=== PATIENT | male | born 1945 | race Caucasian/White ===

== ENCOUNTER 2017-05-22 12:24 | Emergency (ER) | payer OTHER, MEDICARE ==
[~2017-05-22] VITALS: Ht 193 cm; Wt 67.3 kg
[~2017-05-22 12:24] MED LIST: HYDR12.5 PO; MAGN400C PO; METO-395 PO
[2017-05-22 13:04] LABS: BASOPHILS % (AUTO) 0.3 % (0-1); EOSINOPHILS # (AUTO) 0.2 X10'3 (0-0.9); EOSINOPHILS % (AUTO) 1.7 % (0-6); HEMATOCRIT 34.4 % (42.0-52.0); HEMOGLOBIN 11.5 g/dl (14.0-17.9); LYMPHOCYTES % (AUTO) 10.6 % (21-51); MEAN CORPUSCULAR HEMOGLOBIN 35.5 PG (27.0-31.0); MEAN CORPUSCULAR HGB CONC 33.4 % (33.0-36.5); MEAN CORPUSCULAR VOLUME 106.4 FL (78-98); MEAN PLATELET VOLUME 7.3 FL (7.4-10.4); MONOCYTES # (AUTO) 0.5 X10'3 (0-0.9); MONOCYTES % (AUTO) 5.1 % (2-12); NEUTROPHILS # (AUTO) 7.7 X10'3 (1.8-7.7); NEUTROPHILS % (AUTO) 82.3 % (42-75); PLATELET COUNT 284 X10'3 (140-440); RED BLOOD COUNT 3.24 X10'6 (4.70-6.10); RED CELL DISTRIBUTION WIDTH 17.2 % (11.5-14.5); WHITE BLOOD COUNT 9.4 X10'3 (4.5-11.0)
[2017-05-22 13:17] LABS: PARTIAL THROMBOPLASTIN TIME 27 SECONDS (22-32)
[2017-05-22 13:21] LABS: ALANINE AMINOTRANSFERASE 103 U/L (12-78); ALBUMIN 2.7 G/DL (3.4-5.0); ALBUMIN/GLOBULIN RATIO 0.9 (1.1-1.5); ALKALINE PHOSPHATASE 146 IU/L (46-116); ANION GAP 11 (8-16); ASPARTATE AMINO TRANSFERASE 206 U/L (10-37); BILIRUBIN,TOTAL 0.5 MG/DL (0.1-1.0); BLOOD UREA NITROGEN 8 MG/DL (7-18); BUN/CREATININE RATIO 9.2 (5.4-32.0); CALCIUM 7.5 MG/DL (8.5-10.1); CHLORIDE 111 MMOL/L (99-107); CREATININE 0.87 MG/DL (0.60-1.10); GLUCOSE 83 MG/DL (70-104); POTASSIUM 3.3 MMOL/L (3.5-5.1); SODIUM 146 MMOL/L (135-145); TOTAL CARBON DIOXIDE 24.2 MMOL/L (24-32); TOTAL PROTEIN 5.8 G/DL (6.4-8.2); eGFR 87 ML/MIN
[2017-05-22] MEDS ORDERED: magnesium oxide 400mg tablet PO ONE ×2 (14:45→16:35)
[2017-05-22 14:57] LABS: ETHANOL 0.156 GM/DL (0.0-0.010); MAGNESIUM 1.1 MG/DL (1.5-2.4)
[2017-05-22] MEDS: metoprolol tartrate 1mg/ml inj IV SCH ×3 (15:19→15:49)
[2017-05-22] MEDS ORDERED: thiamine 100mg tablet PO ONE (15:25)
[2017-05-22] MEDS ORDERED: folic acid 1mg tablet PO ONE (15:25)
[2017-05-22] MEDS ORDERED: magnesium 2GM in 50ml NS 50 ML IV ONE (16:35)
[2017-05-22] MEDS ORDERED: potassium Cl 20 mEq SR tablet PO ONE (16:35)
[2017-05-22] MEDS ORDERED: METO-395 PO (16:37)
[2017-05-22] MEDS ORDERED: POTA20TA19 PO (16:39)
[2017-05-22] MEDS ORDERED: MAGN400T6 PO (16:39)
[2017-05-22] MEDS ORDERED: metoprolol tartrate 1mg/ml inj IV ONE (16:40)
[2017-05-22] MEDS ORDERED: metoprolol succinate 25mg (24-HOUR) SR. Tablet PO SCH (16:40)
[2017-05-22 17:45] VITALS: BP 137/75
== END 2017-05-22 17:46 | disposition home or self-care (01) ==
LOC: ER 12:25
DX: I47.1 Supraventricular tachycardia (principal); I10 Essential (primary) hypertension; F10.129 Alcohol abuse with intoxication, unspecified; E87.6 Hypokalemia; E83.42 Hypomagnesemia; Z87.11 Personal history of peptic ulcer disease; J44.9 Chronic obstructive pulmonary disease, unspecified; G89.29 Other chronic pain; F17.200 Nicotine dependence, unspecified, uncomplicated; Z91.19 Patient's noncompliance with other medical treatment and regimen
CPT/HCPCS: 36415; 71010; 80053; 80320; 83735; 84484; 85025; 85610; 85730; 93005; 96365; 96375; 96376; 99285; J3475; J3490

== ENCOUNTER 2018-01-24 11:27 | Inpatient (IN) | payer MEDICARE, OTHER ==
[~2018-01-24] VITALS: Ht 193 cm; Wt 66.0 kg
[~2018-01-24 11:27] MED LIST changes: +MAGN400T6 PO
[2018-01-24 12:59] LABS: BASOPHILS # (AUTO) 0.1 X10'3 (0-0.2); BASOPHILS % (AUTO) 0.7 % (0-1); EOSINOPHILS # (AUTO) 0.1 X10'3 (0-0.9); EOSINOPHILS % (AUTO) 1.1 % (0-6); HEMATOCRIT 32.2 % (42.0-52.0); HEMOGLOBIN 11.2 g/dl (14.0-17.9); LYMPHOCYTES # (AUTO) 0.9 X10'3 (1.1-4.8); LYMPHOCYTES % (AUTO) 11.4 % (21-51); MEAN CORPUSCULAR HEMOGLOBIN 37.6 PG (27.0-31.0); MEAN CORPUSCULAR HGB CONC 34.9 % (33.0-36.5); MEAN CORPUSCULAR VOLUME 107.6 FL (78-98); MEAN PLATELET VOLUME 7.7 FL (7.4-10.4); MONOCYTES # (AUTO) 0.6 X10'3 (0-0.9); MONOCYTES % (AUTO) 7.7 % (2-12); NEUTROPHILS # (AUTO) 5.9 X10'3 (1.8-7.7); NEUTROPHILS % (AUTO) 79.1 % (42-75); PLATELET COUNT 364 X10'3 (140-440); RED BLOOD COUNT 2.99 X10'6 (4.70-6.10); RED CELL DISTRIBUTION WIDTH 15.8 % (11.5-14.5); WHITE BLOOD COUNT 7.5 X10'3 (4.5-11.0)
[2018-01-24 13:09] LABS: PARTIAL THROMBOPLASTIN TIME 26 SECONDS (22-32); PROTHROMBIN TIME 10.4 SECONDS (9.0-12.0)
[2018-01-24 13:16] LABS: ALANINE AMINOTRANSFERASE 42 U/L (12-78); ALBUMIN 2.6 G/DL (3.4-5.0); ALBUMIN/GLOBULIN RATIO 0.7 (1.1-1.5); ALKALINE PHOSPHATASE 140 IU/L (46-116); ANION GAP 7 (8-16); ASPARTATE AMINO TRANSFERASE 127 U/L (10-37); BILIRUBIN,TOTAL 1.4 MG/DL (0.1-1.0); BLOOD UREA NITROGEN 7 MG/DL (7-18); BUN/CREATININE RATIO 6.5 (5.4-32.0); CALCIUM 8.4 MG/DL (8.5-10.1); CHLORIDE 103 MMOL/L (99-107); CREATININE 1.07 MG/DL (0.60-1.10); GLUCOSE 89 MG/DL (70-104); POTASSIUM 5.1 MMOL/L (3.5-5.1); SODIUM 138 MMOL/L (135-145); TOTAL CARBON DIOXIDE 28.3 MMOL/L (24-32); TOTAL PROTEIN 6.4 G/DL (6.4-8.2); eGFR 68 ML/MIN
[2018-01-24 13:24] LABS: ETHANOL < 0.010 GM/DL (0.0-0.010); MAGNESIUM 1.3 MG/DL (1.5-2.4); PHOSPHORUS 4.8 MG/DL (2.3-4.5)
[2018-01-24] MEDS ORDERED: cyanocobalamin 1,000 mcg/ml inj IM ONE (14:40)
[2018-01-24] MEDS ORDERED: thiamine 100mg/ml 2ml inj. IV ONE (14:40)
[2018-01-24] MEDS ORDERED: potassium Cl 20 mEq SR tablet PO PRN ×2 (15:15)
[2018-01-24] MEDS ORDERED: magnesium 1gm/100ml D5W IVPB 100 ML IV PRN (15:15)
[2018-01-24] MEDS ORDERED: magnesium hydroxide 30ml (MOM) UD suspension PO PRN (15:15)
[2018-01-24] MEDS ORDERED: magnesium 4gm in 100ml NS 100 ML IV PRN (15:15)
[2018-01-24] MEDS ORDERED: mag hydrox/Alum hydrox/simeth 30ml oral suspension PO PRN (15:15)
[2018-01-24] MEDS ORDERED: acetaminophen 325mg tablet PO PRN ×2 (15:15)
[2018-01-24] MEDS ORDERED: potassium Cl 40MEQ/NS 500ml 500 ML IV PRN ×2 (15:15)
[2018-01-24] MEDS ORDERED: morphine 4 MG/ML inj SYRINge IV PRN ×2 (15:15)
[2018-01-24] MEDS ORDERED: ondansetron/PF 4mg/2ml inj IV PRN (15:15)
[2018-01-24] MEDS: magnesium 1gm/100ml D5W IVPB 100 ML IV SCH ×2 (15:19→16:53)
[2018-01-24 16:24] VITALS: BP 138/89
[2018-01-24] MEDS: normal saline 1000ml 1,000 ML IV SCH (16:53)
[2018-01-24] MEDS ORDERED: NO HOME MEDS (17:52)
[2018-01-24 18:00] VITALS: BP 121/98
[2018-01-24] MEDS: heparin, porcine 5000 units/ml vial SQ SCH (20:18)
[2018-01-24] MEDS ORDERED: temazepam 15mg capsule PO PRN (21:00)
[2018-01-25 06:00] VITALS: BP 102/60
[2018-01-25 07:17] LABS: BASOPHILS # (AUTO) 0.1 X10'3 (0-0.2); BASOPHILS % (AUTO) 1.6 % (0-1); EOSINOPHILS # (AUTO) 0.1 X10'3 (0-0.9); EOSINOPHILS % (AUTO) 2.2 % (0-6); HEMATOCRIT 28.7 % (42.0-52.0); HEMOGLOBIN 9.9 g/dl (14.0-17.9); LYMPHOCYTES # (AUTO) 0.8 X10'3 (1.1-4.8); LYMPHOCYTES % (AUTO) 15.1 % (21-51); MEAN CORPUSCULAR HEMOGLOBIN 37.1 PG (27.0-31.0); MEAN CORPUSCULAR HGB CONC 34.4 % (33.0-36.5); MEAN CORPUSCULAR VOLUME 107.9 FL (78-98); MEAN PLATELET VOLUME 7.7 FL (7.4-10.4); MONOCYTES # (AUTO) 0.5 X10'3 (0-0.9); MONOCYTES % (AUTO) 9.9 % (2-12); NEUTROPHILS # (AUTO) 3.9 X10'3 (1.8-7.7); NEUTROPHILS % (AUTO) 71.2 % (42-75); PLATELET COUNT 323 X10'3 (140-440); RED BLOOD COUNT 2.66 X10'6 (4.70-6.10); RED CELL DISTRIBUTION WIDTH 15.8 % (11.5-14.5); WHITE BLOOD COUNT 5.5 X10'3 (4.5-11.0)
[2018-01-25 07:33] LABS: ALBUMIN 2.3 G/DL (3.4-5.0); ANION GAP 10 (8-16); BLOOD UREA NITROGEN 8 MG/DL (7-18); BUN/CREATININE RATIO 8.4 (5.4-32.0); CALCIUM 8.1 MG/DL (8.5-10.1); CHLORIDE 105 MMOL/L (99-107); CREATININE 0.95 MG/DL (0.60-1.10); GLUCOSE 77 MG/DL (70-104); MAGNESIUM 1.7 MG/DL (1.5-2.4); POTASSIUM 3.9 MMOL/L (3.5-5.1); SODIUM 140 MMOL/L (135-145); TOTAL CARBON DIOXIDE 25.2 MMOL/L (24-32); eGFR 78 ML/MIN
[2018-01-25] MEDS: K and/or MAG REPLACEMENT MC SCH (08:00)
[2018-01-25] MEDS: heparin, porcine 5000 units/ml vial SQ SCH ×2 (08:02→20:03)
[2018-01-25 10:18] LABS: CLARITY,URINE CLEAR (Clear); COLOR,URINE ORANGE (Yellow); GLUCOSE, URINE NEGATIVE (Neg); KETONES,URINE TRACE mg/dl (Neg); LEUKOCYTE ESTERASE ,URINE NEGATIVE (Neg); NITRITES, URINE NEGATIVE (Neg); OCCULT BLOOD,URINE NEGATIVE (Neg); PH,URINE 6.5 (4.8-8.0); PROTEIN,URINE NEGATIVE (Neg); UROBILINOGEN,URINE >=8.0 E.U/dL (0.2-1.0)
[2018-01-25 10:23] LABS: UA COLLECTION TYPE VOIDED
[2018-01-25 10:38] LABS: URINE AMPHETAMINE SCREEN NEGATIVE (Neg); URINE BARBITUATE SCREEN NEGATIVE (Neg); URINE BENZODIAZEPINES SCREEN NEGATIVE (Neg); URINE CANNABINOID SCREEN NEGATIVE (Neg); URINE COCAINE SCREEN NEGATIVE (Neg); URINE METHADONE SCREEN NEGATIVE (Neg); URINE OPIATE SCREEN NEGATIVE (Neg); URINE PHENCYCLIDINE SCREEN NEGATIVE (Neg)
[2018-01-25] MEDS: normal saline 1000ml 1,000 ML IV SCH ×2 (11:14→15:21)
[2018-01-25 13:09] LABS: C DIFF ANTIGEN SEE COMMENTS (NEGATIVE); C DIFF SPECIMEN=DIARRHEA? ACCEPTABLE; C DIFFICILE TOXINS A&B NEGATIVE (Neg)
[2018-01-25 13:13] LABS: C DIFF TOXIN (LAMP) POSITIVE (NEG)
[2018-01-25] MEDS: emollient combination-Eucerin 250 ML LOTION TP SCH (13:16)
[2018-01-25] MEDS: metroNIDAZOLE 500mg tablet PO SCH (20:02)
[2018-01-25] MEDS: [UNRECOGNIZED DRUG - OTHER] TP SCH (20:03)
[2018-01-25] MEDS: MINERAL OIL TP SCH (20:03)
[2018-01-25] MEDS: triamcinolone acet 0.1% cream 15gm TP SCH (20:03)
[2018-01-25 22:00] VITALS: BP 129/84
[2018-01-26 06:00] VITALS: BP 114/70
[2018-01-26 07:41] LABS: BASOPHILS % (AUTO) 0.7 % (0-1); EOSINOPHILS # (AUTO) 0.1 X10'3 (0-0.9); EOSINOPHILS % (AUTO) 2.3 % (0-6); HEMATOCRIT 28.1 % (42.0-52.0); HEMOGLOBIN 9.6 g/dl (14.0-17.9); LYMPHOCYTES % (AUTO) 15.2 % (21-51); MEAN CORPUSCULAR HEMOGLOBIN 37.1 PG (27.0-31.0); MEAN CORPUSCULAR HGB CONC 34.1 % (33.0-36.5); MEAN CORPUSCULAR VOLUME 108.7 FL (78-98); MEAN PLATELET VOLUME 8.2 FL (7.4-10.4); MONOCYTES # (AUTO) 0.5 X10'3 (0-0.9); MONOCYTES % (AUTO) 8.6 % (2-12); NEUTROPHILS # (AUTO) 4.6 X10'3 (1.8-7.7); NEUTROPHILS % (AUTO) 73.2 % (42-75); PLATELET COUNT 302 X10'3 (140-440); RED BLOOD COUNT 2.58 X10'6 (4.70-6.10); WHITE BLOOD COUNT 6.3 X10'3 (4.5-11.0)
[2018-01-26] MEDS: K and/or MAG REPLACEMENT MC SCH (08:00)
[2018-01-26 08:09] LABS: ALBUMIN 2.2 G/DL (3.4-5.0); ANION GAP 6 (8-16); BLOOD UREA NITROGEN 7 MG/DL (7-18); BUN/CREATININE RATIO 7.3 (5.4-32.0); CALCIUM 7.8 MG/DL (8.5-10.1); CHLORIDE 106 MMOL/L (99-107); CREATININE 0.96 MG/DL (0.60-1.10); GLUCOSE 75 MG/DL (70-104); MAGNESIUM 1.4 MG/DL (1.5-2.4); POTASSIUM 3.7 MMOL/L (3.5-5.1); SODIUM 140 MMOL/L (135-145); TOTAL CARBON DIOXIDE 27.6 MMOL/L (24-32); eGFR 77 ML/MIN
[2018-01-26] MEDS: metroNIDAZOLE 500mg tablet PO SCH ×2 (09:48→20:41)
[2018-01-26] MEDS: heparin, porcine 5000 units/ml vial SQ SCH ×2 (09:50→20:42)
[2018-01-26] MEDS: magnesium Cl slow-release 64mg tablet PO PRN ×2 (09:50→20:40)
[2018-01-26] MEDS: triamcinolone acet 0.1% cream 15gm TP SCH ×2 (09:51→20:42)
[2018-01-26] MEDS: [UNRECOGNIZED DRUG - OTHER] TP SCH ×2 (09:51→20:42)
[2018-01-26] MEDS: MINERAL OIL TP SCH ×2 (09:51→20:42)
[2018-01-26] MEDS: emollient combination-Eucerin 250 ML LOTION TP SCH (09:52)
[2018-01-26] MEDS: normal saline 1000ml 1,000 ML IV SCH (09:53)
[2018-01-26 10:00] VITALS: BP 108/72
[2018-01-26 18:00] VITALS: BP 132/83
[2018-01-26] MEDS: HYDROcodone/acetaminophen 5mg/325mg tablet PO PRN (20:41)
[2018-01-26 22:00] VITALS: BP 121/77
[2018-01-27 05:00] VITALS: BP 116/58
[2018-01-27 07:28] LABS: BASOPHILS % (AUTO) 0.5 % (0-1); EOSINOPHILS # (AUTO) 0.2 X10'3 (0-0.9); EOSINOPHILS % (AUTO) 3.1 % (0-6); HEMATOCRIT 28.9 % (42.0-52.0); HEMOGLOBIN 9.7 g/dl (14.0-17.9); LYMPHOCYTES # (AUTO) 0.9 X10'3 (1.1-4.8); LYMPHOCYTES % (AUTO) 17.2 % (21-51); MEAN CORPUSCULAR HEMOGLOBIN 36.8 PG (27.0-31.0); MEAN CORPUSCULAR HGB CONC 33.6 % (33.0-36.5); MEAN CORPUSCULAR VOLUME 109.4 FL (78-98); MEAN PLATELET VOLUME 7.9 FL (7.4-10.4); MONOCYTES # (AUTO) 0.4 X10'3 (0-0.9); MONOCYTES % (AUTO) 8.8 % (2-12); NEUTROPHILS # (AUTO) 3.5 X10'3 (1.8-7.7); NEUTROPHILS % (AUTO) 70.4 % (42-75); PLATELET COUNT 282 X10'3 (140-440); RED BLOOD COUNT 2.64 X10'6 (4.70-6.10); RED CELL DISTRIBUTION WIDTH 15.7 % (11.5-14.5); WHITE BLOOD COUNT 4.9 X10'3 (4.5-11.0)
[2018-01-27 07:40] LABS: ALBUMIN 2.2 G/DL (3.4-5.0); ANION GAP 7 (8-16); BLOOD UREA NITROGEN 7 MG/DL (7-18); BUN/CREATININE RATIO 8.9 (5.4-32.0); CALCIUM 7.9 MG/DL (8.5-10.1); CHLORIDE 106 MMOL/L (99-107); CREATININE 0.79 MG/DL (0.60-1.10); GLUCOSE 83 MG/DL (70-104); MAGNESIUM 1.5 MG/DL (1.5-2.4); POTASSIUM 3.5 MMOL/L (3.5-5.1); SODIUM 139 MMOL/L (135-145); TOTAL CARBON DIOXIDE 26.4 MMOL/L (24-32); eGFR > 90 ML/MIN
[2018-01-27] MEDS: K and/or MAG REPLACEMENT MC SCH (08:00)
[2018-01-27] MEDS: metroNIDAZOLE 500mg tablet PO SCH ×2 (08:08→20:11)
[2018-01-27] MEDS: heparin, porcine 5000 units/ml vial SQ SCH ×2 (08:09→20:11)
[2018-01-27] MEDS: MINERAL OIL TP SCH ×2 (08:09→20:12)
[2018-01-27] MEDS: [UNRECOGNIZED DRUG - OTHER] TP SCH ×2 (08:09→20:12)
[2018-01-27] MEDS: emollient combination-Eucerin 250 ML LOTION TP SCH (08:09)
[2018-01-27] MEDS: triamcinolone acet 0.1% cream 15gm TP SCH ×2 (08:09→20:12)
[2018-01-27 10:00] VITALS: BP 109/63
[2018-01-27] MEDS: HYDROcodone/acetaminophen 5mg/325mg tablet PO PRN (15:00)
[2018-01-27 18:30] VITALS: BP 101/69
[2018-01-27] MEDS: lactobacillus rhamnosus 10,000 MMU CELLS/CAPSULE PO SCH (20:11)
[2018-01-27 22:00] VITALS: BP 119/72
[2018-01-28 05:30] VITALS: BP 135/72
[2018-01-28 06:02] LABS: ALBUMIN 2.1 G/DL (3.4-5.0); ANION GAP 7 (8-16); BLOOD UREA NITROGEN 10 MG/DL (7-18); BUN/CREATININE RATIO 12.8 (5.4-32.0); CHLORIDE 109 MMOL/L (99-107); CREATININE 0.78 MG/DL (0.60-1.10); GLUCOSE 84 MG/DL (70-104); MAGNESIUM 1.6 MG/DL (1.5-2.4); POTASSIUM 3.6 MMOL/L (3.5-5.1); SODIUM 139 MMOL/L (135-145); TOTAL CARBON DIOXIDE 23.1 MMOL/L (24-32); eGFR > 90 ML/MIN
[2018-01-28 06:04] LABS: BASOPHILS % (AUTO) 0.8 % (0-1); EOSINOPHILS # (AUTO) 0.1 X10'3 (0-0.9); EOSINOPHILS % (AUTO) 2.6 % (0-6); HEMATOCRIT 27.9 % (42.0-52.0); HEMOGLOBIN 9.7 g/dl (14.0-17.9); LYMPHOCYTES # (AUTO) 0.9 X10'3 (1.1-4.8); LYMPHOCYTES % (AUTO) 19.1 % (21-51); MEAN CORPUSCULAR HEMOGLOBIN 37.8 PG (27.0-31.0); MEAN CORPUSCULAR HGB CONC 34.6 % (33.0-36.5); MEAN CORPUSCULAR VOLUME 109.2 FL (78-98); MONOCYTES # (AUTO) 0.5 X10'3 (0-0.9); MONOCYTES % (AUTO) 10.3 % (2-12); NEUTROPHILS # (AUTO) 3.3 X10'3 (1.8-7.7); NEUTROPHILS % (AUTO) 67.2 % (42-75); PLATELET COUNT 252 X10'3 (140-440); RED BLOOD COUNT 2.56 X10'6 (4.70-6.10); RED CELL DISTRIBUTION WIDTH 15.6 % (11.5-14.5); WHITE BLOOD COUNT 4.9 X10'3 (4.5-11.0)
[2018-01-28] MEDS: K and/or MAG REPLACEMENT MC SCH (08:04)
[2018-01-28] MEDS: metroNIDAZOLE 500mg tablet PO SCH ×2 (08:15→20:04)
[2018-01-28] MEDS: lactobacillus rhamnosus 10,000 MMU CELLS/CAPSULE PO SCH ×2 (08:15→20:04)
[2018-01-28] MEDS: emollient combination-Eucerin 250 ML LOTION TP SCH (08:16)
[2018-01-28] MEDS: triamcinolone acet 0.1% cream 15gm TP SCH ×2 (08:16→20:08)
[2018-01-28] MEDS: MINERAL OIL TP SCH ×2 (08:16→20:08)
[2018-01-28] MEDS: [UNRECOGNIZED DRUG - OTHER] TP SCH ×2 (08:16→20:08)
[2018-01-28] MEDS: heparin, porcine 5000 units/ml vial SQ SCH ×2 (08:16→20:04)
[2018-01-28 10:00] VITALS: BP 93/51
[2018-01-28] MEDS: HYDROcodone/acetaminophen 5mg/325mg tablet PO PRN (14:18)
[2018-01-28 18:36] VITALS: BP 113/71
[2018-01-28 22:13] VITALS: BP 114/71
[2018-01-29 05:54] LABS: BASOPHILS # (AUTO) 0.1 X10'3 (0-0.2); BASOPHILS % (AUTO) 1.2 % (0-1); EOSINOPHILS # (AUTO) 0.2 X10'3 (0-0.9); EOSINOPHILS % (AUTO) 3.5 % (0-6); HEMOGLOBIN 9.8 g/dl (14.0-17.9); LYMPHOCYTES # (AUTO) 1.1 X10'3 (1.1-4.8); LYMPHOCYTES % (AUTO) 22.6 % (21-51); MEAN CORPUSCULAR HEMOGLOBIN 37.2 PG (27.0-31.0); MEAN CORPUSCULAR VOLUME 109.7 FL (78-98); MEAN PLATELET VOLUME 7.6 FL (7.4-10.4); MONOCYTES # (AUTO) 0.6 X10'3 (0-0.9); MONOCYTES % (AUTO) 12.6 % (2-12); NEUTROPHILS # (AUTO) 2.8 X10'3 (1.8-7.7); NEUTROPHILS % (AUTO) 60.1 % (42-75); PLATELET COUNT 280 X10'3 (140-440); RED BLOOD COUNT 2.64 X10'6 (4.70-6.10); RED CELL DISTRIBUTION WIDTH 15.8 % (11.5-14.5); WHITE BLOOD COUNT 4.7 X10'3 (4.5-11.0)
[2018-01-29 06:02] LABS: ALBUMIN 2.2 G/DL (3.4-5.0); ANION GAP 11 (8-16); BLOOD UREA NITROGEN 11 MG/DL (7-18); BUN/CREATININE RATIO 10.8 (5.4-32.0); CALCIUM 7.9 MG/DL (8.5-10.1); CHLORIDE 106 MMOL/L (99-107); CREATININE 1.02 MG/DL (0.60-1.10); GLUCOSE 80 MG/DL (70-104); MAGNESIUM 1.4 MG/DL (1.5-2.4); POTASSIUM 3.3 MMOL/L (3.5-5.1); SODIUM 141 MMOL/L (135-145); TOTAL CARBON DIOXIDE 23.9 MMOL/L (24-32); eGFR 72 ML/MIN
[2018-01-29 06:53] LABS: ANISOCYTOSIS 1+; PLATELET ESTIMATE NORMAL
[2018-01-29] MEDS ORDERED: potassium Cl 40MEQ/NS 500ml 500 ML IV PRN ×2 (07:30)
[2018-01-29] MEDS ORDERED: potassium Cl 20 mEq SR tablet PO PRN ×2 (07:30)
[2018-01-29] MEDS ORDERED: magnesium 4gm in 100ml NS 100 ML IV PRN (07:30)
[2018-01-29] MEDS ORDERED: magnesium Cl slow-release 64mg tablet PO PRN (07:30)
[2018-01-29 07:38] VITALS: BP 127/66
[2018-01-29] MEDS: metroNIDAZOLE 500mg tablet PO SCH (07:43)
[2018-01-29] MEDS: heparin, porcine 5000 units/ml vial SQ SCH (07:43)
[2018-01-29] MEDS: lactobacillus rhamnosus 10,000 MMU CELLS/CAPSULE PO SCH (07:43)
[2018-01-29] MEDS: emollient combination-Eucerin 250 ML LOTION TP SCH (07:47)
[2018-01-29] MEDS: [UNRECOGNIZED DRUG - OTHER] TP SCH (07:48)
[2018-01-29] MEDS: MINERAL OIL TP SCH (07:48)
[2018-01-29] MEDS: triamcinolone acet 0.1% cream 15gm TP SCH (07:48)
[2018-01-29] MEDS: K and/or MAG REPLACEMENT MC SCH (08:58)
[2018-01-29 11:00] VITALS: BP 113/68
[2018-01-29] MEDS ORDERED: KEN0.1O TP (14:59)
[2018-01-29] MEDS ORDERED: MINE50OI TP (14:59)
[2018-01-29] MEDS ORDERED: LACT1CAP26 PO (14:59)
[2018-01-29] MEDS ORDERED: EMOL200L TP (14:59)
[2018-01-29] MEDS ORDERED: METR500T4 PO (14:59)
[2018-01-29] MEDS ORDERED: MULT1TAB74 PO (17:57)
[2018-01-29] MEDS ORDERED: THI100T PO (17:57)
[2018-01-29] MEDS ORDERED: FOLI1TAB16 PO (17:57)
== END 2018-01-29 16:55 | disposition home health service (06) | DRG 605 ==
LOC: ER 11:28 → ED HOLD 15:14 → ORTHO 4S 16:30
PROVIDERS: ADMIT Internal Medicine; ATTEND Family Medicine
DX: S91.301A Unspecified open wound, right foot, initial encounter (principal); A04.72 Enterocolitis due to Clostridium difficile, not specified as recurrent; E44.0 Moderate protein-calorie malnutrition; Z68.1 Body mass index [BMI] 19.9 or less, adult; S91.302A Unspecified open wound, left foot, initial encounter; E83.42 Hypomagnesemia; F10.20 Alcohol dependence, uncomplicated; F12.90 Cannabis use, unspecified, uncomplicated; F17.200 Nicotine dependence, unspecified, uncomplicated; I10 Essential (primary) hypertension; J44.9 Chronic obstructive pulmonary disease, unspecified; K74.60 Unspecified cirrhosis of liver; Z60.2 Problems related to living alone; G89.29 Other chronic pain; X58.XXXA Exposure to other specified factors, initial encounter; R26.81 Unsteadiness on feet; Y90.0 Blood alcohol level of less than 20 mg/100 ml; Z66 Do not resuscitate; Z87.11 Personal history of peptic ulcer disease; Z90.5 Acquired absence of kidney; Z91.14 Patient's other noncompliance with medication regimen; Z91.19 Patient's noncompliance with other medical treatment and regimen; Z71.41 Alcohol abuse counseling and surveillance of alcoholic; Z71.6 Tobacco abuse counseling; Y93.89 Activity, other specified; Y92.89 Other specified places as the place of occurrence of the external cause; Y99.8 Other external cause status
CPT/HCPCS: 36415; 71045; 73630; 80048; 80053; 80305; 80320; 81003; 82140; 82607; 83605; 83735; 84100; 84443; 84484; 85025; 85610; 85730; 87040; 87070; 87324; 87449; 87493; 93005; 93922; 97110; 97116; 97162; 97530; 99285; A6209; A6212; A6250; A6449; J1644; J3411; J3420; J3490; J7030

== ENCOUNTER 2018-05-17 16:26 | Inpatient (IN) | payer MEDICARE, OTHER ==
[~2018-05-17] VITALS: Ht 193 cm; Wt 59.1 kg
[~2018-05-17 16:26] MED LIST changes: +EMOL200L TP; +FOLI1TAB16 PO; -HYDR12.5 PO; +KEN0.1O TP; +LACT1CAP26 PO; -MAGN400C PO; -MAGN400T6 PO; -METO-395 PO; +METR-211 PO; +MINE50OI TP; +MULT1TAB74 PO; +THI100T PO
[2018-05-17 17:51] LABS: BASOPHILS % (AUTO) 0.4 % (0-1); EOSINOPHILS # (AUTO) 0.2 X10'3 (0-0.9); EOSINOPHILS % (AUTO) 1.6 % (0-6); HEMATOCRIT 27.7 % (42.0-52.0); HEMOGLOBIN 9.5 g/dl (14.0-17.9); LYMPHOCYTES # (AUTO) 1.1 X10'3 (1.1-4.8); LYMPHOCYTES % (AUTO) 10.5 % (21-51); MEAN CORPUSCULAR HEMOGLOBIN 37.8 PG (27.0-31.0); MEAN CORPUSCULAR HGB CONC 34.2 % (33.0-36.5); MEAN CORPUSCULAR VOLUME 110.6 FL (78-98); MEAN PLATELET VOLUME 8.3 FL (7.4-10.4); MONOCYTES # (AUTO) 0.6 X10'3 (0-0.9); MONOCYTES % (AUTO) 5.5 % (2-12); NEUTROPHILS # (AUTO) 8.4 X10'3 (1.8-7.7); PLATELET COUNT 298 X10'3 (140-440); RED BLOOD COUNT 2.51 X10'6 (4.70-6.10); RED CELL DISTRIBUTION WIDTH 15.6 % (11.5-14.5); WHITE BLOOD COUNT 10.2 X10'3 (4.5-11.0)
[2018-05-17 18:02] LABS: INR 1.1 INR; PARTIAL THROMBOPLASTIN TIME 28 SECONDS (22-32); PROTHROMBIN TIME 10.9 SECONDS (9.0-12.0)
[2018-05-17 18:07] LABS: ALANINE AMINOTRANSFERASE 36 U/L (12-78); ALBUMIN 2.7 G/DL (3.4-5.0); ALBUMIN/GLOBULIN RATIO 0.7 (1.1-1.5); ALKALINE PHOSPHATASE 244 IU/L (46-116); ANION GAP 18 (8-16); ASPARTATE AMINO TRANSFERASE 112 U/L (10-37); BILIRUBIN,TOTAL 1.6 MG/DL (0.1-1.0); BLOOD UREA NITROGEN 11 MG/DL (7-18); BUN/CREATININE RATIO 8.6 (5.4-32.0); CALCIUM 7.7 MG/DL (8.5-10.1); CHLORIDE 95 MMOL/L (99-107); CREATININE 1.28 MG/DL (0.60-1.10); GLUCOSE 92 MG/DL (70-104); POTASSIUM 3.6 MMOL/L (3.5-5.1); SODIUM 135 MMOL/L (135-145); TOTAL CARBON DIOXIDE 21.6 MMOL/L (24-32); TOTAL PROTEIN 6.8 G/DL (6.4-8.2); eGFR 55 ML/MIN
[2018-05-17] MEDS ORDERED: piperacillin/tazo 3.375gm/50ml 50 ML IV ONE (18:35)
[2018-05-17] MEDS ORDERED: normal saline 1000ML IV soln IVB ONE (18:35)
[2018-05-17] MEDS ORDERED: vancomycin/NS 1 GM ADD-VANTAGE 250 ML IV ONE (18:35)
[2018-05-17] MEDS ORDERED: traMADol 50MG tablet PO ONE (19:10)
[2018-05-17] MEDS ORDERED: fluconazole 100mg tablet PO ONE (19:10)
[2018-05-17] MEDS ORDERED: sulfamethoxazole/trimethoprim DS (800/160mg) tablet PO ONE (19:10)
[2018-05-17] MEDS ORDERED: piperacillin/tazo 3.375gm/50ml 50 ML IV SCH (20:45)
[2018-05-17] MEDS ORDERED: temazepam 15mg capsule PO PRN (21:00)
[2018-05-17] MEDS ORDERED: vancomycin/NS 1 GM ADD-VANTAGE 250 ML IV SCH (22:00)
[2018-05-17] MEDS ORDERED: HYDROcodone/acetaminophen 10/325mg tab PO PRN (22:35)
[2018-05-17] MEDS ORDERED: dicyclomine 10 MG capsule PO PRN (22:35)
[2018-05-17] MEDS ORDERED: haloperidol 5mg tablet PO PRN (22:35)
[2018-05-17] MEDS ORDERED: haloperidol lactate 5mg/ml inj IM PRN (22:35)
[2018-05-17] MEDS ORDERED: bisacodyl 10mg suppository rectal RC PRN (22:35)
[2018-05-17] MEDS ORDERED: dextrose 50%-water 50ml dispensing syringe IV PRN (22:35)
[2018-05-17] MEDS ORDERED: morphine 2 MG/ML inj. syringe IV PRN (22:35)
[2018-05-17] MEDS ORDERED: acetaminophen 650mg rectal suppository RC PRN (22:35)
[2018-05-17] MEDS ORDERED: acetaminophen 325mg tablet PO PRN ×2 (22:35)
[2018-05-17] MEDS ORDERED: ondansetron/PF 4mg/2ml inj IV PRN (22:35)
[2018-05-17] MEDS ORDERED: HYDROmorphone 1 mg/ml syringe IV PRN (22:35)
[2018-05-17] MEDS ORDERED: cyclobenzaprine 10mg tablet PO PRN (22:35)
[2018-05-17] MEDS ORDERED: loperamide 2mg capsule PO PRN (22:35)
[2018-05-17] MEDS ORDERED: magnesium hydroxide 30ml (MOM) UD suspension PO PRN (22:35)
[2018-05-17] MEDS ORDERED: diphenhydrAMINE 50 mg/ml inj IV PRN (22:35)
[2018-05-17] MEDS ORDERED: diphenhydrAMINE 25mg capsule PO PRN (22:35)
[2018-05-17] MEDS ORDERED: LORazepam 1 MG tablet PO PRN (22:35)
[2018-05-17] MEDS ORDERED: mag hydrox/Alum hydrox/simeth 30ml oral suspension PO PRN ×2 (22:35)
[2018-05-17] MEDS ORDERED: morphine 4 MG/ML inj SYRINge IV PRN (23:07)
[2018-05-17 23:22] LABS: CREATINE KINASE 58 U/L (39-308); ETHANOL 0.034 GM/DL (0.0-0.010); LIPASE 128 U/L (73-393); PHOSPHORUS 3.8 MG/DL (2.3-4.5)
[2018-05-17 23:33] LABS: INR 1.2 INR; PARTIAL THROMBOPLASTIN TIME 28 SECONDS (22-32)
[2018-05-17] MEDS: dextrose 5%-1/2 normal saline 1,000 ML IV SCH (23:35)
[2018-05-17] MEDS: pantoprazole 40 MG vial IV SCH (23:35)
[2018-05-18] MEDS ORDERED: magnesium 4gm in 100ml NS 100 ML IV PRN
[2018-05-18] MEDS: magnesium Cl slow-release 64mg tablet PO PRN (00:23)
[2018-05-18] MEDS: piperacillin/tazo 3.375gm/50ml 50 ML IV SCH ×3 (00:26→16:51)
[2018-05-18 03:46] LABS: ABG BASE EXCESS 0.9 mmol/L (-2.0-3.0); ABG HCO3 25.3 mmol/L (22.0-26.0); ABG OXYGEN SATURATION 91.4 % (95-98); ABG PCO2 (T) 37.8 mmHg (35.0-48.0); ABG PO2 (T) 59.9 mmHg (83-108); ALLEN'S TEST Positive; FCOHb 1.4 % (0.5-1.5); FMetHb 0.1 % (0.3-1.12); RESPIRATORY RATE (OBSERVED) 16 b/min; TOTAL HEMOGLOBIN 8.4 G/dl (14.0-18.0)
[2018-05-18 03:48] LABS: BASOPHILS % (AUTO) 0.1 % (0-1); EOSINOPHILS # (AUTO) 0.1 X10'3 (0-0.9); HEMATOCRIT 23.1 % (42.0-52.0); HEMOGLOBIN 7.8 g/dl (14.0-17.9); LYMPHOCYTES # (AUTO) 0.3 X10'3 (1.1-4.8); LYMPHOCYTES % (AUTO) 4.2 % (21-51); MEAN CORPUSCULAR HEMOGLOBIN 37.1 PG (27.0-31.0); MEAN CORPUSCULAR HGB CONC 33.8 % (33.0-36.5); MEAN CORPUSCULAR VOLUME 109.7 FL (78-98); MEAN PLATELET VOLUME 8.4 FL (7.4-10.4); MONOCYTES # (AUTO) 0.3 X10'3 (0-0.9); MONOCYTES % (AUTO) 3.8 % (2-12); NEUTROPHILS % (AUTO) 90.9 % (42-75); PLATELET COUNT 241 X10'3 (140-440); RED BLOOD COUNT 2.11 X10'6 (4.70-6.10); RED CELL DISTRIBUTION WIDTH 15.6 % (11.5-14.5); WHITE BLOOD COUNT 6.6 X10'3 (4.5-11.0)
[2018-05-18 04:05] LABS: ALANINE AMINOTRANSFERASE 25 U/L (12-78); ALBUMIN 1.9 G/DL (3.4-5.0); ALBUMIN/GLOBULIN RATIO 0.6 (1.1-1.5); ALKALINE PHOSPHATASE 180 IU/L (46-116); AMYLASE 30 U/L (25-115); ANION GAP 11 (8-16); BILIRUBIN,TOTAL 1.7 MG/DL (0.1-1.0); BLOOD UREA NITROGEN 9 MG/DL (7-18); BUN/CREATININE RATIO 9.3 (5.4-32.0); CALCIUM 6.6 MG/DL (8.5-10.1); CHLORIDE 102 MMOL/L (99-107); CREATININE 0.97 MG/DL (0.60-1.10); GLUCOSE 155 MG/DL (70-104); SODIUM 137 MMOL/L (135-145); TOTAL CARBON DIOXIDE 24.4 MMOL/L (24-32); TOTAL PROTEIN 5.1 G/DL (6.4-8.2); eGFR 76 ML/MIN
[2018-05-18 04:07] LABS: ASPARTATE AMINO TRANSFERASE 73 U/L (10-37); PHOSPHORUS 3.1 MG/DL (2.3-4.5); POTASSIUM 3.8 MMOL/L (3.5-5.1)
[2018-05-18 04:09] LABS: MAGNESIUM 0.9 MG/DL (1.5-2.4)
[2018-05-18 05:28] LABS: URINE AMPHETAMINE SCREEN NEGATIVE (Neg); URINE BARBITUATE SCREEN NEGATIVE (Neg); URINE BENZODIAZEPINES SCREEN NEGATIVE (Neg); URINE CANNABINOID SCREEN NEGATIVE (Neg); URINE COCAINE SCREEN NEGATIVE (Neg); URINE METHADONE SCREEN NEGATIVE (Neg); URINE OPIATE SCREEN NEGATIVE (Neg); URINE PHENCYCLIDINE SCREEN NEGATIVE (Neg)
[2018-05-18 05:37] LABS: CLARITY,URINE CLEAR (Clear); COLOR,URINE YELLOW (Yellow); GLUCOSE, URINE NEGATIVE (Neg); KETONES,URINE TRACE mg/dl (Neg); LEUKOCYTE ESTERASE ,URINE NEGATIVE (Neg); NITRITES, URINE NEGATIVE (Neg); OCCULT BLOOD,URINE NEGATIVE (Neg); PROTEIN,URINE NEGATIVE (Neg); UROBILINOGEN,URINE >=8.0 E.U/dL (0.2-1.0)
[2018-05-18 05:44] LABS: UA COLLECTION TYPE VOIDED
[2018-05-18] MEDS: MINERAL OIL TP SCH ×2 (09:10→20:40)
[2018-05-18] MEDS: [UNRECOGNIZED DRUG - OTHER] TP SCH ×2 (09:10→20:40)
[2018-05-18] MEDS: mineral oil/petrolatum, white cream 113gm jar TP SCH (09:10)
[2018-05-18] MEDS: dextrose 5%-1/2 normal saline 1,000 ML IV SCH ×3 (09:14→22:16)
[2018-05-18] MEDS: docusate sod 100mg capsule PO SCH ×2 (09:16→20:00)
[2018-05-18] MEDS: pantoprazole 40 MG vial IV SCH (09:16)
[2018-05-18] MEDS: nicotine 14mg patch - 24hr TD SCH (09:16)
[2018-05-18] MEDS: folic acid inj. 2 MG, thiamine inj. 100 MG, MVI, adult No.4 with vit. K 10 ML in dextro... IV SCH ×4 (09:20)
[2018-05-18] MEDS: vancomycin/NS 1 GM ADD-VANTAGE 250 ML IV SCH ×2 (10:07→20:39)
[2018-05-18] MEDS ORDERED: vancomycin/NS 1 GM ADD-VANTAGE 250 ML IV SCH (20:00)
[2018-05-18] MEDS: loperamide 2mg capsule PO PRN (20:56)
[2018-05-18 23:30] LABS: OCCULT BLOOD STOOL NEGATIVE (Neg)
[2018-05-19] MEDS: piperacillin/tazo 3.375gm/50ml 50 ML IV SCH ×4 (00:05→23:37)
[2018-05-19] MEDS ORDERED: VANCOMYCIN LEVEL IV NR (07:30)
[2018-05-19 07:44] VITALS: BP 103/73
[2018-05-19] MEDS: dextrose 5%-1/2 normal saline 1,000 ML IV SCH (07:58)
[2018-05-19] MEDS: MINERAL OIL TP SCH ×2 (08:00→20:00)
[2018-05-19] MEDS: mineral oil/petrolatum, white cream 113gm jar TP SCH (08:00)
[2018-05-19] MEDS: [UNRECOGNIZED DRUG - OTHER] TP SCH ×2 (08:00→20:00)
[2018-05-19] MEDS: folic acid inj. 2 MG, thiamine inj. 100 MG, MVI, adult No.4 with vit. K 10 ML in dextro... IV SCH ×4 (08:04)
[2018-05-19] MEDS: docusate sod 100mg capsule PO SCH ×2 (08:18→20:00)
[2018-05-19] MEDS: pantoprazole 40 MG vial IV SCH (08:18)
[2018-05-19] MEDS: nicotine 14mg patch - 24hr TD SCH (08:19)
[2018-05-19 08:20] LABS: BASOPHILS % (AUTO) 0.1 % (0-1); EOSINOPHILS # (AUTO) 0.3 X10'3 (0-0.9); EOSINOPHILS % (AUTO) 4.8 % (0-6); HEMATOCRIT 22.1 % (42.0-52.0); HEMOGLOBIN 7.5 g/dl (14.0-17.9); LYMPHOCYTES # (AUTO) 0.4 X10'3 (1.1-4.8); LYMPHOCYTES % (AUTO) 5.7 % (21-51); MEAN CORPUSCULAR HEMOGLOBIN 37.3 PG (27.0-31.0); MEAN CORPUSCULAR HGB CONC 33.9 % (33.0-36.5); MEAN CORPUSCULAR VOLUME 110.2 FL (78-98); MEAN PLATELET VOLUME 8.1 FL (7.4-10.4); MONOCYTES # (AUTO) 0.4 X10'3 (0-0.9); MONOCYTES % (AUTO) 6.2 % (2-12); NEUTROPHILS # (AUTO) 5.4 X10'3 (1.8-7.7); NEUTROPHILS % (AUTO) 83.2 % (42-75); PLATELET COUNT 223 X10'3 (140-440); RED CELL DISTRIBUTION WIDTH 15.3 % (11.5-14.5); WHITE BLOOD COUNT 6.5 X10'3 (4.5-11.0)
[2018-05-19 08:53] LABS: ALANINE AMINOTRANSFERASE 20 U/L (12-78); ALBUMIN 1.8 G/DL (3.4-5.0); ALBUMIN/GLOBULIN RATIO 0.6 (1.1-1.5); ALKALINE PHOSPHATASE 143 IU/L (46-116); AMYLASE 26 U/L (25-115); ANION GAP 9 (8-16); ASPARTATE AMINO TRANSFERASE 50 U/L (10-37); BILIRUBIN,TOTAL 0.9 MG/DL (0.1-1.0); BLOOD UREA NITROGEN 6 MG/DL (7-18); CALCIUM 6.6 MG/DL (8.5-10.1); CHLORIDE 104 MMOL/L (99-107); GLUCOSE 66 MG/DL (70-104); MAGNESIUM 1.5 MG/DL (1.5-2.4); PHOSPHORUS 2.3 MG/DL (2.3-4.5); SODIUM 137 MMOL/L (135-145); TOTAL CARBON DIOXIDE 23.6 MMOL/L (24-32); TOTAL PROTEIN 4.6 G/DL (6.4-8.2); VANCOMYCIN,TROUGH 18.2 UG/ML (6.0-14.0); eGFR 74 ML/MIN
[2018-05-19] MEDS ORDERED: potassium Cl 20 mEq SR tablet PO PRN (09:25)
[2018-05-19] MEDS ORDERED: potassium Cl 40MEQ/NS 500ml 500 ML IV PRN ×2 (09:25)
[2018-05-19 09:46] LABS: C DIFF ANTIGEN SEE COMMENTS (NEGATIVE); C DIFF SPECIMEN=DIARRHEA? ACCEPTABLE; C DIFFICILE TOXINS A&B NEGATIVE (Neg)
[2018-05-19 12:10] LABS: C DIFF TOXIN (LAMP) NEGATIVE (NEG)
[2018-05-19] MEDS: vancomycin/NS 1 GM ADD-VANTAGE 250 ML IV SCH ×2 (12:24→20:48)
[2018-05-19] MEDS: potassium Cl 20 mEq SR tablet PO PRN ×3 (12:48→23:38)
[2018-05-19] MEDS: loperamide 2mg capsule PO PRN (14:10)
[2018-05-19 17:33] VITALS: BP 101/72
[2018-05-19] MEDS ORDERED: gadopentetate dimeglumine 7.5 MMOL/15 ML syringe ONE (18:18)
[2018-05-19 19:00] VITALS: BP 109/78
[2018-05-20] VITALS (7 sets, daily range): BP systolic 92–124; BP diastolic 50–75
[2018-05-20] MEDS: dextrose 5%-1/2 normal saline 1,000 ML IV SCH ×3 (00:35→20:21)
[2018-05-20 05:10] LABS: BASOPHILS % (AUTO) 0.2 % (0-1); EOSINOPHILS # (AUTO) 0.2 X10'3 (0-0.9); EOSINOPHILS % (AUTO) 3.6 % (0-6); LYMPHOCYTES # (AUTO) 0.3 X10'3 (1.1-4.8); LYMPHOCYTES % (AUTO) 4.4 % (21-51); MEAN CORPUSCULAR HEMOGLOBIN 37.3 PG (27.0-31.0); MEAN CORPUSCULAR HGB CONC 33.8 % (33.0-36.5); MEAN CORPUSCULAR VOLUME 110.4 FL (78-98); MEAN PLATELET VOLUME 7.9 FL (7.4-10.4); MONOCYTES # (AUTO) 0.4 X10'3 (0-0.9); MONOCYTES % (AUTO) 6.2 % (2-12); NEUTROPHILS # (AUTO) 5.5 X10'3 (1.8-7.7); NEUTROPHILS % (AUTO) 85.6 % (42-75); PLATELET COUNT 228 X10'3 (140-440); RED BLOOD COUNT 1.85 X10'6 (4.70-6.10); RED CELL DISTRIBUTION WIDTH 15.3 % (11.5-14.5); WHITE BLOOD COUNT 6.5 X10'3 (4.5-11.0)
[2018-05-20 05:29] LABS: ALANINE AMINOTRANSFERASE 24 U/L (12-78); ALBUMIN 1.7 G/DL (3.4-5.0); ALBUMIN/GLOBULIN RATIO 0.6 (1.1-1.5); ALKALINE PHOSPHATASE 128 IU/L (46-116); AMYLASE 25 U/L (25-115); ANION GAP 8 (8-16); ASPARTATE AMINO TRANSFERASE 68 U/L (10-37); BILIRUBIN,TOTAL 0.8 MG/DL (0.1-1.0); BLOOD UREA NITROGEN 5 MG/DL (7-18); BUN/CREATININE RATIO 5.5 (5.4-32.0); CALCIUM 6.6 MG/DL (8.5-10.1); CHLORIDE 108 MMOL/L (99-107); CREATININE 0.91 MG/DL (0.60-1.10); GLUCOSE 73 MG/DL (70-104); MAGNESIUM 1.2 MG/DL (1.5-2.4); PHOSPHORUS 1.7 MG/DL (2.3-4.5); POTASSIUM 4.2 MMOL/L (3.5-5.1); SODIUM 139 MMOL/L (135-145); TOTAL CARBON DIOXIDE 22.9 MMOL/L (24-32); TOTAL PROTEIN 4.4 G/DL (6.4-8.2); eGFR 82 ML/MIN
[2018-05-20 05:49] LABS: HEMATOCRIT 20.4 % (42.0-52.0); HEMOGLOBIN 6.9 g/dl (14.0-17.9)
[2018-05-20] MEDS: folic acid inj. 2 MG, thiamine inj. 100 MG, MVI, adult No.4 with vit. K 10 ML in dextro... IV SCH ×4 (07:21)
[2018-05-20] MEDS: nicotine 14mg patch - 24hr TD SCH (07:21)
[2018-05-20] MEDS: docusate sod 100mg capsule PO SCH ×2 (07:21→20:00)
[2018-05-20] MEDS: pantoprazole 40 MG vial IV SCH (07:22)
[2018-05-20] MEDS: mineral oil/petrolatum, white cream 113gm jar TP SCH ×2 (07:34→07:52)
[2018-05-20] MEDS: MINERAL OIL TP SCH ×3 (07:34→20:00)
[2018-05-20] MEDS: [UNRECOGNIZED DRUG - OTHER] TP SCH ×3 (07:34→20:00)
[2018-05-20] MEDS: magnesium Cl slow-release 64mg tablet PO PRN ×2 (07:35→20:06)
[2018-05-20] MEDS: vancomycin/NS 1 GM ADD-VANTAGE 250 ML IV SCH ×2 (08:23→20:06)
[2018-05-20] MEDS: K and/or MAG REPLACEMENT MC SCH (08:28)
[2018-05-20] MEDS: piperacillin/tazo 3.375gm/50ml 50 ML IV SCH ×2 (10:13→16:10)
[2018-05-20 13:02] LABS: % IRON SATURATION 32 % (11-46); IRON 22 UG/DL (53-167); TOTAL IRON BINDING CAPACITY 68 UG/DL (259-388)
[2018-05-21] VITALS: BP 119/67
[2018-05-21] MEDS: piperacillin/tazo 3.375gm/50ml 50 ML IV SCH ×4 (01:05→23:14)
[2018-05-21 04:58] LABS: BASOPHILS % (AUTO) 0.1 % (0-1); EOSINOPHILS # (AUTO) 0.3 X10'3 (0-0.9); EOSINOPHILS % (AUTO) 3.5 % (0-6); HEMATOCRIT 22.9 % (42.0-52.0); HEMOGLOBIN 7.7 g/dl (14.0-17.9); LYMPHOCYTES # (AUTO) 0.5 X10'3 (1.1-4.8); LYMPHOCYTES % (AUTO) 6.8 % (21-51); MEAN CORPUSCULAR HEMOGLOBIN 35.2 PG (27.0-31.0); MEAN CORPUSCULAR HGB CONC 33.3 % (33.0-36.5); MEAN CORPUSCULAR VOLUME 105.7 FL (78-98); MEAN PLATELET VOLUME 7.7 FL (7.4-10.4); MONOCYTES # (AUTO) 0.7 X10'3 (0-0.9); MONOCYTES % (AUTO) 8.8 % (2-12); NEUTROPHILS # (AUTO) 6.1 X10'3 (1.8-7.7); NEUTROPHILS % (AUTO) 80.8 % (42-75); PLATELET COUNT 235 X10'3 (140-440); RED BLOOD COUNT 2.17 X10'6 (4.70-6.10); RED CELL DISTRIBUTION WIDTH 19.6 % (11.5-14.5); WHITE BLOOD COUNT 7.6 X10'3 (4.5-11.0)
[2018-05-21 05:28] LABS: ALANINE AMINOTRANSFERASE 25 U/L (12-78); ALBUMIN 1.7 G/DL (3.4-5.0); ALBUMIN/GLOBULIN RATIO 0.6 (1.1-1.5); ALKALINE PHOSPHATASE 124 IU/L (46-116); ANION GAP 10 (8-16); ASPARTATE AMINO TRANSFERASE 68 U/L (10-37); BILIRUBIN,TOTAL 0.7 MG/DL (0.1-1.0); BLOOD UREA NITROGEN 6 MG/DL (7-18); BUN/CREATININE RATIO 4.2 (5.4-32.0); CHLORIDE 108 MMOL/L (99-107); CREATININE 1.44 MG/DL (0.60-1.10); GLUCOSE 76 MG/DL (70-104); POTASSIUM 4.1 MMOL/L (3.5-5.1); SODIUM 139 MMOL/L (135-145); TOTAL PROTEIN 4.5 G/DL (6.4-8.2); eGFR 48 ML/MIN
[2018-05-21 07:43] VITALS: BP 101/57
[2018-05-21] MEDS ORDERED: magnesium 4gm in 100ml NS 100 ML IV PRN (08:00)
[2018-05-21] MEDS ORDERED: potassium Cl 20 mEq SR tablet PO PRN ×2 (08:00)
[2018-05-21] MEDS ORDERED: potassium Cl 40MEQ/NS 500ml 500 ML IV PRN ×2 (08:00)
[2018-05-21] MEDS: MINERAL OIL TP SCH ×2 (08:00→20:00)
[2018-05-21] MEDS: K and/or MAG REPLACEMENT MC SCH (08:00)
[2018-05-21] MEDS: [UNRECOGNIZED DRUG - OTHER] TP SCH ×2 (08:00→20:00)
[2018-05-21] MEDS: mineral oil/petrolatum, white cream 113gm jar TP SCH (08:00)
[2018-05-21] MEDS: nicotine 14mg patch - 24hr TD SCH (09:05)
[2018-05-21] MEDS: folic acid 1mg tablet PO SCH (09:07)
[2018-05-21] MEDS: thiamine 100mg tablet PO SCH (09:07)
[2018-05-21] MEDS: multivitamins, therapeutics tablet PO SCH (09:08)
[2018-05-21] MEDS: docusate sod 100mg capsule PO SCH ×2 (09:08→18:53)
[2018-05-21] MEDS: pantoprazole 40mg Tablet.DR PO SCH (09:16)
[2018-05-21] MEDS: loperamide 2mg capsule PO PRN (09:16)
[2018-05-21] MEDS: vancomycin/NS 1 GM ADD-VANTAGE 250 ML IV SCH ×2 (10:57→20:02)
[2018-05-21 11:13] VITALS: BP 103/50
[2018-05-21] MEDS: magnesium Cl slow-release 64mg tablet PO PRN ×2 (12:46→20:03)
[2018-05-21 20:00] VITALS: BP 130/74
[2018-05-21] MEDS: ferrous sulfate ER tablet 140 MG TABLET.ER PO SCH (20:03)
[2018-05-21] MEDS: lactobacillus rhamnosus 10,000 MMU CELLS/CAPSULE PO SCH (20:03)
[2018-05-21 23:00] VITALS: BP 113/61
[2018-05-22] MEDS: docusate sod 100mg capsule PO SCH (07:22)
[2018-05-22] MEDS: pantoprazole 40mg Tablet.DR PO SCH (07:22)
[2018-05-22] MEDS: ferrous sulfate ER tablet 140 MG TABLET.ER PO SCH (07:22)
[2018-05-22] MEDS: piperacillin/tazo 3.375gm/50ml 50 ML IV SCH (07:22)
[2018-05-22] MEDS: multivitamins, therapeutics tablet PO SCH (07:22)
[2018-05-22] MEDS: nicotine 14mg patch - 24hr TD SCH (07:22)
[2018-05-22] MEDS: thiamine 100mg tablet PO SCH (07:22)
[2018-05-22] MEDS: mineral oil/petrolatum, white cream 113gm jar TP SCH (07:22)
[2018-05-22] MEDS: lactobacillus rhamnosus 10,000 MMU CELLS/CAPSULE PO SCH (07:22)
[2018-05-22] MEDS: folic acid 1mg tablet PO SCH (07:23)
[2018-05-22] MEDS ORDERED: VANCOMYCIN LEVEL IV ONE (07:30)
[2018-05-22] MEDS: K and/or MAG REPLACEMENT MC SCH (07:32)
[2018-05-22] MEDS: vancomycin/NS 1 GM ADD-VANTAGE 250 ML IV SCH (08:00)
[2018-05-22 08:53] VITALS: BP 98/57
[2018-05-22 10:14] LABS: BASOPHILS % (AUTO) 0.2 % (0-1); EOSINOPHILS # (AUTO) 0.4 X10'3 (0-0.9); EOSINOPHILS % (AUTO) 4.3 % (0-6); HEMATOCRIT 29.4 % (42.0-52.0); HEMOGLOBIN 9.8 g/dl (14.0-17.9); LYMPHOCYTES # (AUTO) 0.9 X10'3 (1.1-4.8); MEAN CORPUSCULAR HEMOGLOBIN 35.5 PG (27.0-31.0); MEAN CORPUSCULAR HGB CONC 33.2 % (33.0-36.5); MEAN CORPUSCULAR VOLUME 107.1 FL (78-98); MEAN PLATELET VOLUME 7.8 FL (7.4-10.4); MONOCYTES # (AUTO) 0.9 X10'3 (0-0.9); MONOCYTES % (AUTO) 9.4 % (2-12); NEUTROPHILS # (AUTO) 7.3 X10'3 (1.8-7.7); NEUTROPHILS % (AUTO) 77.1 % (42-75); PLATELET COUNT 335 X10'3 (140-440); RED BLOOD COUNT 2.74 X10'6 (4.70-6.10); WHITE BLOOD COUNT 9.5 X10'3 (4.5-11.0)
[2018-05-22 10:30] LABS: ALANINE AMINOTRANSFERASE 30 U/L (12-78); ALBUMIN/GLOBULIN RATIO 0.6 (1.1-1.5); ALKALINE PHOSPHATASE 149 IU/L (46-116); ANION GAP 10 (8-16); ASPARTATE AMINO TRANSFERASE 76 U/L (10-37); BILIRUBIN,TOTAL 0.8 MG/DL (0.1-1.0); BLOOD UREA NITROGEN 8 MG/DL (7-18); BUN/CREATININE RATIO 4.6 (5.4-32.0); CALCIUM 7.6 MG/DL (8.5-10.1); CHLORIDE 108 MMOL/L (99-107); CREATININE 1.73 MG/DL (0.60-1.10); GLUCOSE 95 MG/DL (70-104); POTASSIUM 3.8 MMOL/L (3.5-5.1); SODIUM 141 MMOL/L (135-145); TOTAL CARBON DIOXIDE 22.6 MMOL/L (24-32); TOTAL PROTEIN 5.3 G/DL (6.4-8.2); eGFR 39 ML/MIN
[2018-05-22 10:31] LABS: MAGNESIUM 1.3 MG/DL (1.5-2.4)
[2018-05-22 10:34] LABS: VANCOMYCIN,TROUGH 33.6 UG/ML (6.0-14.0)
[2018-05-22 11:43] VITALS: BP 122/71
[2018-05-22] MEDS: magnesium Cl slow-release 64mg tablet PO PRN (11:58)
[2018-05-22] MEDS ORDERED: FOLI1TAB16 PO (14:36)
[2018-05-22] MEDS ORDERED: MULT-1179 PO (14:36)
[2018-05-22] MEDS ORDERED: thiamine tablet PO (14:36)
[2018-05-22] MEDS ORDERED: AMOX-422 PO (14:36)
[2018-05-22] MEDS ORDERED: FERR140T2 PO (14:36)
[2018-05-22] MEDS ORDERED: piperacillin/tazobactam inj. 2.25 GM in normal saline 50ml IV IV SCH (20:00)
[2018-05-22] MEDS ORDERED: vancomycin/NS 1 GM ADD-VANTAGE 250 ML IV SCH (20:00)
[2018-05-25] MEDS ORDERED: VANCOMYCIN LEVEL IV ONE (19:30)
== END 2018-05-22 16:25 | disposition home or self-care (01) | DRG 602 ==
LOC: ER 16:26 → ED HOLD 22:35 → EDBEDREQSVC 05-18 08:19 → EDBEDREQTM 05-19 06:32 → SUR 3N 05-19 07:11
PROVIDERS: ADMIT Family Medicine; ATTEND Family Medicine
PROC: 30233N1 Transfusion of Nonautologous Red Blood Cells into Peripheral Vein, Percutaneous Approach (ICD-10-PCS; principal; 2018-05-20)
DX: L03.116 Cellulitis of left lower limb (principal); E43 Unspecified severe protein-calorie malnutrition; E87.2 Acidosis; Z68.1 Body mass index [BMI] 19.9 or less, adult; R19.7 Diarrhea, unspecified; L03.115 Cellulitis of right lower limb; E83.42 Hypomagnesemia; R15.9 Full incontinence of feces; D50.9 Iron deficiency anemia, unspecified; E83.51 Hypocalcemia; E86.0 Dehydration; E87.6 Hypokalemia; F10.229 Alcohol dependence with intoxication, unspecified; F12.90 Cannabis use, unspecified, uncomplicated; F17.210 Nicotine dependence, cigarettes, uncomplicated; Z60.2 Problems related to living alone; I12.9 Hypertensive chronic kidney disease with stage 1 through stage 4 chronic kidney disease, or unspecified chronic kidney disease; G89.29 Other chronic pain; I48.91 Unspecified atrial fibrillation; J44.9 Chronic obstructive pulmonary disease, unspecified; K74.60 Unspecified cirrhosis of liver; L30.9 Dermatitis, unspecified; N18.9 Chronic kidney disease, unspecified; Z90.5 Acquired absence of kidney; Z79.899 Other long term (current) drug therapy; Z86.14 Personal history of Methicillin resistant Staphylococcus aureus infection; Z87.11 Personal history of peptic ulcer disease
CPT/HCPCS: 36415; 36600; 71045; 73630; 73720; 80053; 80202; 80305; 80320; 81003; 82150; 82272; 82550; 82607; 82803; 82948; 83540; 83550; 83605; 83690; 83735; 83880; 84100; 84145; 84439; 84443; 84480; 85018; 85025; 85610; 85730; 86885; 86900; 86901; 86920; 87040; 87045; 87046; 87070; 87324; 87449; 87493; 89055; 93005; 93922; 93925; 96365; 96367; 97110; 97116; 97162; 99285; A9579; C9113; G0378; J2543; J3370; J3411; J3475; J3490; J7060; P9016

== ENCOUNTER 2018-05-31 17:54 | Inpatient (IN) | payer MEDICARE, OTHER | END 2018-06-08 12:27 | LOC: ER 17:54 → ORTHO 4S 06-01 07:37 → ED HOLD 20:35 | DX: N17.9 Acute kidney failure, unspecified (principal); E43 Unspecified severe protein-calorie malnutrition; Z68.1 Body mass index [BMI] 19.9 or less, adult; R62.7 Adult failure to thrive; F10.20 Alcohol dependence, uncomplicated; D53.9 Nutritional anemia, unspecified; E83.42 Hypomagnesemia; R74.0 Nonspecific elevation of levels of transaminase and lactic acid dehydrogenase [LDH] ==

== ENCOUNTER 2018-07-08 03:42 | Emergency (ER) | payer MEDICARE, OTHER ==
[~2018-07-08] VITALS: Ht 182.9 cm; Wt 80.9 kg
[~2018-07-08 03:42] MED LIST changes: -EMOL200L TP; -FOLI1TAB16 PO; -KEN0.1O TP; -LACT1CAP26 PO; -METR-211 PO; -MINE50OI TP; -MULT1TAB74 PO; +NO HOME MEDS; -THI100T PO
[2018-07-08] MEDS ORDERED: thiamine 100mg tablet PO ONE (03:50)
[2018-07-08] MEDS ORDERED: normal saline 1000ML IV soln IVB ONE (03:50)
[2018-07-08] MEDS ORDERED: LORazepam 2 mg/ml vial IV ONE (03:50)
[2018-07-08] MEDS ORDERED: folic acid 1mg tablet PO ONE (03:50)
--- NOTE | 2018-07-08 04:05 | NUR ---
Patient to CT.
[2018-07-08 04:10] LABS: CLARITY,URINE CLEAR (Clear); COLOR,URINE YELLOW (Yellow); GLUCOSE, URINE NEGATIVE (Neg); KETONES,URINE NEGATIVE (Neg); LEUKOCYTE ESTERASE ,URINE NEGATIVE (Neg); NITRITES, URINE NEGATIVE (Neg); OCCULT BLOOD,URINE NEGATIVE (Neg); PROTEIN,URINE NEGATIVE (Neg); UROBILINOGEN,URINE 0.2 E.U/dL (0.2-1.0)
[2018-07-08 04:11] LABS: BASOPHILS % (AUTO) 0.6 % (0-1); EOSINOPHILS # (AUTO) 0.2 X10'3 (0-0.9); EOSINOPHILS % (AUTO) 2.4 % (0-6); HEMATOCRIT 31.3 % (42.0-52.0); HEMOGLOBIN 10.6 g/dl (14.0-17.9); LYMPHOCYTES # (AUTO) 1.3 X10'3 (1.1-4.8); LYMPHOCYTES % (AUTO) 16.8 % (21-51); MEAN CORPUSCULAR HEMOGLOBIN 33.1 PG (27.0-31.0); MEAN CORPUSCULAR HGB CONC 33.7 g/dL (33.0-36.5); MEAN CORPUSCULAR VOLUME 98.3 FL (78-98); MEAN PLATELET VOLUME 7.7 FL (7.4-10.4); MONOCYTES # (AUTO) 0.9 X10'3 (0-0.9); MONOCYTES % (AUTO) 11.4 % (2-12); NEUTROPHILS # (AUTO) 5.1 X10'3 (1.8-7.7); NEUTROPHILS % (AUTO) 68.8 % (42-75); PLATELET COUNT 445 X10'3 (140-440); RED BLOOD COUNT 3.18 X10'6 (4.70-6.10); RED CELL DISTRIBUTION WIDTH 15.1 % (11.5-14.5); WHITE BLOOD COUNT 7.5 X10'3 (4.5-11.0)
[2018-07-08 04:12] LABS: UA COLLECTION TYPE STRAIGHT CATH
[2018-07-08 04:32] LABS: INR 1.2 INR; PARTIAL THROMBOPLASTIN TIME 29 SECONDS (22-32); PROTHROMBIN TIME 11.9 SECONDS (9.0-12.0)
[2018-07-08 04:43] LABS: ALANINE AMINOTRANSFERASE 32 U/L (12-78); ALBUMIN 2.8 G/DL (3.4-5.0); ALBUMIN/GLOBULIN RATIO 0.6 (1.1-1.5); ALKALINE PHOSPHATASE 173 IU/L (46-116); ANION GAP 11 (8-16); ASPARTATE AMINO TRANSFERASE 74 U/L (10-37); BILIRUBIN,TOTAL 0.5 MG/DL (0.1-1.0); BLOOD UREA NITROGEN 13 MG/DL (7-18); BUN/CREATININE RATIO 13.3 (5.4-32.0); CALCIUM 9.7 MG/DL (8.5-10.1); CHLORIDE 101 MMOL/L (99-107); CREATININE 0.98 MG/DL (0.60-1.10); GLUCOSE 93 MG/DL (70-104); MAGNESIUM 1.2 MG/DL (1.5-2.4); PHOSPHORUS 4.5 MG/DL (2.3-4.5); SODIUM 133 MMOL/L (135-145); TOTAL CARBON DIOXIDE 20.6 MMOL/L (24-32); TOTAL PROTEIN 7.8 G/DL (6.4-8.2); eGFR 75 ML/MIN
[2018-07-08] MEDS ORDERED: chlordiazePOXIDE 25mg capsule PO ONE ×3 (04:45→06:20)
[2018-07-08] MEDS ORDERED: potassium Cl 20 mEq SR tablet PO ONE (05:15)
[2018-07-08] MEDS ORDERED: magnesium 2GM in 50ml NS 50 ML IV ONE (05:15)
[2018-07-08] MEDS ORDERED: magnesium oxide 400mg tablet PO ONE ×2 (05:15→06:20)
--- NOTE | 2018-07-08 05:50 | NUR ---
Report given to Maddison, RN @ [facility] in preparation for pt return to their facility. Explained importance of maintaining ETOH protocol and shared ER tx, affirmning nothing acute found. Maddison was unsure if ETOH protocol was in place for this pt but would check.
--- NOTE | 2018-07-08 05:55 | NUR ---
Dr Mercado cancelled second Lactic; not need. Mg infusing and [facility] called for transport back to [facility].
[2018-07-08 06:16] VITALS: BP 156/96
--- NOTE | 2018-07-08 06:38 | NUR ---
pt did not recieve his dose of mg and librium. aware.
== END 2018-07-08 07:01 | disposition home or self-care (01) ==
LOC: ER 03:43
DX: F10.239 Alcohol dependence with withdrawal, unspecified (principal); R41.0 Disorientation, unspecified; E83.42 Hypomagnesemia; E51.2 Wernicke's encephalopathy; I10 Essential (primary) hypertension; J44.9 Chronic obstructive pulmonary disease, unspecified; G89.29 Other chronic pain; F12.90 Cannabis use, unspecified, uncomplicated; F17.210 Nicotine dependence, cigarettes, uncomplicated; Z86.14 Personal history of Methicillin resistant Staphylococcus aureus infection; Z98.890 Other specified postprocedural states; Z60.2 Problems related to living alone; Y90.9 Presence of alcohol in blood, level not specified
CPT/HCPCS: 36415; 70450; 80053; 81003; 83605; 83735; 84100; 84484; 85025; 85610; 85730; 87040; 93005; 96365; 96375; 99284; J2060; J3475; P9612